=== PATIENT | female | born 1960 | race African-American/Black ===

== ENCOUNTER 2017-07-18 22:38 | Emergency (ER) | payer MEDICARE, MEDICAID | END 2017-07-19 00:07 | disposition home or self-care (01) | LOC: D.ER 22:38 | DX: T40.7X5A Adverse effect of cannabis (derivatives), initial encounter (principal); Y92.019 Unspecified place in single-family (private) house as the place of occurrence of the external cause ==

== ENCOUNTER 2017-08-05 23:34 | Emergency (ER) | payer MEDICARE, MEDICAID ==
[2017-08-06 00:50] LABS: BASOPHILS 0.4 % (0-2); EOSINOPHILS 5.7 % (0-7); HEMOGLOBIN 14.3 g/dL (12-16); IMMATURE GRANULOCYTES 0.3 % (0-5); MCH 27.4 pg (26.0-34.0); MCHC 32.5 g/dL (31.0-37.0); MCV 84.3 fL (80.0-100.0); NEUTROPHILS 55.6 % (40-80); PLATELET COUNT 241 10x3/uL (130-400); RBC 5.22 10x6/uL (4.00-5.40); RDW 14.1 % (11.5-14.5); WBC 6.9 10x3/uL (4.8-10.8)
[2017-08-06 00:54] LABS: ALBUMIN 3.4 g/dL (3.4-5.0); ALKALINE PHOSPHATASE 101 U/L (46-116); ALT (SGPT) 21 U/L (10-68); CALC OSMOLALITY 277 mosm/kg (275-300); CALCIUM 9.4 mg/dL (8.5-10.1); CARBON DIOXIDE 29.9 mmol/L (21.0-32.0); CHLORIDE - SERUM 103 mmol/L (98-107); CREATININE - SERUM 1.2 mg/dL (0.6-1.3); GLUCOSE 108 mg/dL (74-106); POTASSIUM - SERUM 3.3 mmol/L (3.5-5.1); PROTEIN - SERUM 7.8 g/dL (6.4-8.2); SODIUM 138 mmol/L (136-145); UREA NITROGEN 15 mg/dL (7-18); eGFR NON AFRICAN AMERICAN 49 mL/min (90-120)
[2017-08-06 01:02] LABS: THYROID STIMULATING HORMONE 5.35 uIU/mL (0.36-3.74); TROPONIN-I < 0.017 ng/mL (0.000-0.060)
== END 2017-08-06 02:08 | disposition home or self-care (01) ==
LOC: D.ER 23:34
PROVIDERS: Family Medicine
DX: I10 Essential (primary) hypertension (principal); K21.9 Gastro-esophageal reflux disease without esophagitis

== ENCOUNTER 2017-08-27 16:48 | Emergency (ER) | payer MEDICARE, MEDICAID ==
[2017-08-27 18:29] LABS: BASOPHILS 0.5 % (0-2); EOSINOPHILS 3.9 % (0-7); HEMATOCRIT 43.6 % (36.0-48.0); HEMOGLOBIN 14.3 g/dL (12-16); IMMATURE GRANULOCYTES 0.3 % (0-5); LYMPHOCYTES 28.7 % (15-50); MCH 27.4 pg (26.0-34.0); MCHC 32.8 g/dL (31.0-37.0); MCV 83.7 fL (80.0-100.0); MEAN PLATELET VOLUME 12.6 fL (7.4-10.4); MONOCYTES 8.6 % (2-11); PLATELET COUNT 225 10x3/uL (130-400); RBC 5.21 10x6/uL (4.00-5.40); RDW 13.8 % (11.5-14.5); WBC 7.9 10x3/uL (4.8-10.8)
[2017-08-27 18:35] LABS: APPEARANCE HAZY (CLEAR); BILIRUBIN NEGATIVE (NEGATIVE); GLUCOSE NEGATIVE (NEGATIVE); KETONE NEGATIVE (NEGATIVE); NITRITE NEGATIVE (NEGATIVE); PROTEIN 3+ mg/dL (NEGATIVE); SPECIFIC GRAVITY 1.015 (1.005-1.020); UROBILINOGEN NORMAL (NORMAL)
[2017-08-27 18:39] LABS: BACTERIA FEW /hpf (NONE SEEN); EPITHELIAL CELLS RARE /hpf (0-5); RED CELLS - URINE >50 /hpf (0-5)
[2017-08-27 18:47] LABS: ALBUMIN 3.2 g/dL (3.4-5.0); ANION GAP 14.2 mmol/L (8-16); BILIRUBIN - TOTAL 0.39 mg/dL (0.2-1.3); CALCIUM 9.4 mg/dL (8.5-10.1); CREATININE - SERUM 1.3 mg/dL (0.6-1.3); POTASSIUM - SERUM 3.2 mmol/L (3.5-5.1); PROTEIN - SERUM 7.6 g/dL (6.4-8.2)
== END 2017-08-27 20:07 | disposition home or self-care (01) ==
LOC: D.ER 16:48
PROVIDERS: Nurse Practitioner Acute Care
DX: R42 Dizziness and giddiness (principal); I10 Essential (primary) hypertension

== ENCOUNTER 2017-09-13 13:52 | Emergency (ER) | payer MEDICARE, MEDICAID ==
[2017-09-13 16:23] LABS: APPEARANCE CLEAR (CLEAR); BILIRUBIN NEGATIVE (NEGATIVE); COLOR YELLOW (YELLOW); GLUCOSE NEGATIVE (NEGATIVE); KETONE NEGATIVE (NEGATIVE); NITRITE NEGATIVE (NEGATIVE); PROTEIN NEGATIVE (NEGATIVE); UROBILINOGEN NORMAL (NORMAL)
[2017-09-13 16:24] LABS: RED CELLS - URINE 25-50 /hpf (0-5); WHITE CELLS - URINE 0-5 /hpf (0-5)
== END 2017-09-13 16:51 | disposition home or self-care (01) ==
LOC: D.ER 13:52
PROVIDERS: Nurse Practitioner Family
DX: J06.9 Acute upper respiratory infection, unspecified (principal); R42 Dizziness and giddiness; K21.9 Gastro-esophageal reflux disease without esophagitis

== ENCOUNTER 2017-09-18 10:25 | Emergency (ER) | payer MEDICARE, MEDICAID ==
[2017-09-18 11:07] LABS: BASOPHILS 0.1 % (0-2); EOSINOPHILS 0.2 % (0-7); HEMATOCRIT 46.9 % (36.0-48.0); HEMOGLOBIN 15.7 g/dL (12-16); IMMATURE GRANULOCYTES 0.4 % (0-5); LYMPHOCYTES 9.5 % (15-50); MCH 28.1 pg (26.0-34.0); MCHC 33.5 g/dL (31.0-37.0); MCV 83.9 fL (80.0-100.0); MEAN PLATELET VOLUME 11.5 fL (7.4-10.4); MONOCYTES 5.2 % (2-11); NEUTROPHILS 84.6 % (40-80); RBC 5.59 10x6/uL (4.00-5.40); RDW 13.9 % (11.5-14.5); WBC 13.4 10x3/uL (4.8-10.8)
[2017-09-18 11:10] LABS: PLATELET COUNT 334 10x3/uL (130-400)
[2017-09-18 11:24] LABS: ALBUMIN 3.2 g/dL (3.4-5.0); ANION GAP 12.3 mmol/L (8-16); BILIRUBIN - TOTAL 0.58 mg/dL (0.2-1.3); CALCIUM 9.6 mg/dL (8.5-10.1); CREATININE - SERUM 1.4 mg/dL (0.6-1.3); POTASSIUM - SERUM 4.3 mmol/L (3.5-5.1); PROTEIN - SERUM 8.1 g/dL (6.4-8.2)
[2017-09-18 11:57] LABS: CREATINE KINASE 32 UL (21-215); TROPONIN-I < 0.017 ng/mL (0.000-0.060)
[2017-09-18 12:06] LABS: APPEARANCE CLEAR (CLEAR); BACTERIA MODERATE /hpf (NONE SEEN); BILIRUBIN NEGATIVE (NEGATIVE); COLOR YELLOW (YELLOW); EPITHELIAL CELLS 0-5 /hpf (0-5); GLUCOSE NEGATIVE (NEGATIVE); KETONE NEGATIVE (NEGATIVE); NITRITE NEGATIVE (NEGATIVE); PROTEIN 1+ mg/dL (NEGATIVE); RED CELLS - URINE 25-50 /hpf (0-5); UROBILINOGEN NORMAL (NORMAL)
[2017-09-18 12:08] LABS: UDS - AMPHET NEGATIVE QUAL (NEGATIVE); UDS - BARB NEGATIVE QUAL (NEGATIVE); UDS - BENZO NEGATIVE QUAL (NEGATIVE); UDS - COCAINE NEGATIVE QUAL (NEGATIVE); UDS - OPIATE NEGATIVE QUAL (NEGATIVE); UDS - PCP NEGATIVE QUAL (NEGATIVE); UDS - THC NEGATIVE QUAL (NEGATIVE)
== END 2017-09-18 14:19 | disposition home or self-care (01) ==
LOC: D.ER 10:25
PROVIDERS: Emergency Medicine
DX: R53.1 Weakness (principal); R25.1 Tremor, unspecified; R42 Dizziness and giddiness; H93.19 Tinnitus, unspecified ear; R51 Headache; I12.9 Hypertensive chronic kidney disease with stage 1 through stage 4 chronic kidney disease, or unspecified chronic kidney disease; N18.9 Chronic kidney disease, unspecified; N39.0 Urinary tract infection, site not specified; K21.9 Gastro-esophageal reflux disease without esophagitis

== ENCOUNTER 2017-09-19 20:59 | Emergency (ER) | payer MEDICARE, MEDICAID | END 2017-09-19 22:41 | disposition home or self-care (01) | LOC: D.ER 20:59 | DX: F41.9 Anxiety disorder, unspecified (principal); K21.9 Gastro-esophageal reflux disease without esophagitis; I12.9 Hypertensive chronic kidney disease with stage 1 through stage 4 chronic kidney disease, or unspecified chronic kidney disease; N18.9 Chronic kidney disease, unspecified ==

== ENCOUNTER 2017-10-02 03:38 | Emergency (ER) | payer MEDICARE, MEDICAID ==
[2017-10-02 04:34] LABS: APPEARANCE HAZY (CLEAR); BILIRUBIN NEGATIVE (NEGATIVE); COLOR YELLOW (YELLOW); GLUCOSE NEGATIVE (NEGATIVE); KETONE NEGATIVE (NEGATIVE); NITRITE NEGATIVE (NEGATIVE); PROTEIN 1+ mg/dL (NEGATIVE); SPECIFIC GRAVITY 1.015 (1.005-1.020); UROBILINOGEN NORMAL (NORMAL)
[2017-10-02 04:35] LABS: BACTERIA FEW /hpf (NONE SEEN); EPITHELIAL CELLS 0-5 /hpf (0-5)
== END 2017-10-02 05:18 | disposition home or self-care (01) ==
LOC: D.ER 03:38
PROVIDERS: Emergency Medicine
DX: A09 Infectious gastroenteritis and colitis, unspecified (principal); N39.0 Urinary tract infection, site not specified; K21.9 Gastro-esophageal reflux disease without esophagitis; I12.9 Hypertensive chronic kidney disease with stage 1 through stage 4 chronic kidney disease, or unspecified chronic kidney disease; N18.9 Chronic kidney disease, unspecified

== ENCOUNTER 2017-10-02 10:13 | Emergency (ER) | payer MEDICARE, MEDICAID ==
[2017-10-02 11:27] LABS: BASOPHILS 0.3 % (0-2); HEMATOCRIT 43.7 % (36.0-48.0); HEMOGLOBIN 13.9 g/dL (12-16); IMMATURE GRANULOCYTES 0.3 % (0-5); LYMPHOCYTES 23.9 % (15-50); MCH 27.5 pg (26.0-34.0); MCHC 31.8 g/dL (31.0-37.0); MCV 86.5 fL (80.0-100.0); MONOCYTES 6.4 % (2-11); NEUTROPHILS 66.1 % (40-80); RBC 5.05 10x6/uL (4.00-5.40); RDW 15.1 % (11.5-14.5); WBC 7.7 10x3/uL (4.8-10.8)
[2017-10-02 11:29] LABS: ALBUMIN 3.2 g/dL (3.4-5.0); ALKALINE PHOSPHATASE 98 U/L (46-116); ALT (SGPT) 32 U/L (10-68); CALC OSMOLALITY 277 mosm/kg (275-300); CALCIUM 9.2 mg/dL (8.5-10.1); CARBON DIOXIDE 27.7 mmol/L (21.0-32.0); CHLORIDE - SERUM 104 mmol/L (98-107); GLUCOSE 91 mg/dL (74-106); PLATELET COUNT 232 10x3/uL (130-400); PROTEIN - SERUM 7.5 g/dL (6.4-8.2); SODIUM 140 mmol/L (136-145); UREA NITROGEN 9 mg/dL (7-18); eGFR NON AFRICAN AMERICAN 61 mL/min (90-120)
[2017-10-02 11:41] LABS: CREATINE KINASE 56 UL (21-215); MAGNESIUM - SERUM 2.3 mg/dL (1.8-2.4)
[2017-10-02 11:49] LABS: TROPONIN-I < 0.017 ng/mL (0.000-0.060)
== END 2017-10-02 15:00 | disposition home or self-care (01) ==
LOC: D.ER 10:13
PROVIDERS: Family Medicine
DX: F41.9 Anxiety disorder, unspecified (principal); I10 Essential (primary) hypertension; K21.9 Gastro-esophageal reflux disease without esophagitis

== ENCOUNTER 2017-12-08 11:41 | Emergency (ER) | payer MEDICARE, MEDICAID ==
[2017-12-08 12:48] LABS: BASOPHILS 0.3 % (0-2); EOSINOPHILS 3.7 % (0-7); HEMATOCRIT 39.6 % (36.0-48.0); HEMOGLOBIN 12.6 g/dL (12-16); IMMATURE GRANULOCYTES 0.3 % (0-5); LYMPHOCYTES 22.3 % (15-50); MCH 27.5 pg (26.0-34.0); MCHC 31.8 g/dL (31.0-37.0); MCV 86.3 fL (80.0-100.0); MEAN PLATELET VOLUME 12.1 fL (7.4-10.4); MONOCYTES 9.1 % (2-11); NEUTROPHILS 64.3 % (40-80); PLATELET COUNT 198 10x3/uL (130-400); RBC 4.59 10x6/uL (4.00-5.40); RDW 14.3 % (11.5-14.5)
[2017-12-08 13:12] LABS: ANION GAP 13.3 mmol/L (8-16); BILIRUBIN - TOTAL 0.41 mg/dL (0.2-1.3); CALCIUM 8.7 mg/dL (8.5-10.1); CARBON DIOXIDE 26.3 mmol/L (21.0-32.0); POTASSIUM - SERUM 4.6 mmol/L (3.5-5.1)
== END 2017-12-08 15:16 | disposition home or self-care (01) ==
LOC: D.ER 11:41
PROVIDERS: Physician Assistant
DX: R42 Dizziness and giddiness (principal); J06.9 Acute upper respiratory infection, unspecified; G44.209 Tension-type headache, unspecified, not intractable; K21.9 Gastro-esophageal reflux disease without esophagitis; I12.9 Hypertensive chronic kidney disease with stage 1 through stage 4 chronic kidney disease, or unspecified chronic kidney disease; N18.9 Chronic kidney disease, unspecified

== ENCOUNTER → 2018-04-23 08:00 | Outpatient (CLI) | payer MEDICARE, MEDICAID | END | disposition home or self-care (01) | LOC: D.MAMMO 08:00 | DX: Z12.31 Encounter for screening mammogram for malignant neoplasm of breast (principal) ==

== ENCOUNTER → 2018-08-20 13:25 | Outpatient (CLI) | payer MEDICARE, MEDICAID | END | disposition home or self-care (01) | LOC: D.RT 13:25 | DX: R06.02 Shortness of breath (principal) ==

== ENCOUNTER 2018-12-31 21:12 | Emergency (ER) | payer MEDICARE, MEDICAID ==
[~2018-12-31] VITALS: Ht 149.9 cm; Wt 134.1 kg
[2018-12-31 21:15] VITALS: Ht 149.9 cm; Wt 134.1 kg
[2018-12-31] MEDS ORDERED: CHOLESTEROL PILL (21:17)
[2018-12-31] MEDS ORDERED: METOPROLOL TART50 MG PO (21:17)
[2018-12-31] MEDS ORDERED: HYDROCHLOROTHIA25 MG PO (21:17)
[2018-12-31] MEDS ORDERED: POTASSIUM CHLO20 MEQ PO (21:18)
[2018-12-31] MEDS ORDERED: FUROSEMIDE40 MG PO (21:18)
[2018-12-31 21:54] LABS: BASOPHILS 0.2 % (0-2); EOSINOPHILS 4.5 % (0-7); HEMOGLOBIN 12.8 g/dL (12-16); IMMATURE GRANULOCYTES 0.5 % (0-5); MCH 27.1 pg (26.0-34.0); MCV 84.7 fL (80.0-100.0); MEAN PLATELET VOLUME 11.3 fL (7.4-10.4); MONOCYTES 6.2 % (2-11); NEUTROPHILS 66.6 % (40-80); RBC 4.72 10x6/uL (4.00-5.40); RDW 14.1 % (11.5-14.5)
[2018-12-31 21:57] LABS: PLATELET COUNT 266 10x3/uL (130-400)
[2018-12-31 22:06] LABS: ALBUMIN 2.9 g/dL (3.4-5.0); ANION GAP 11.5 mmol/L (8-16); BILIRUBIN - TOTAL 0.25 mg/dL (0.2-1.3); CALCIUM 8.4 mg/dL (8.5-10.1); CARBON DIOXIDE 25.2 mmol/L (21.0-32.0); CREATININE - SERUM 1.1 mg/dL (0.6-1.3); POTASSIUM - SERUM 3.7 mmol/L (3.5-5.1); PROTEIN - SERUM 7.2 g/dL (6.4-8.2)
[2019-01-01 04:04] VITALS: BP 165/87
== END 2019-01-01 00:16 | disposition home or self-care (01) ==
LOC: D.ER 21:12
PROVIDERS: Family Medicine
DX: E86.0 Dehydration (principal); R19.7 Diarrhea, unspecified; I10 Essential (primary) hypertension

== ENCOUNTER 2019-04-25 06:39 | Emergency (ER) | payer MEDICARE, MEDICAID ==
[~2019-04-25] VITALS: Ht 149.9 cm; Wt 143.2 kg
[~2019-04-25 06:39] MED LIST: CHOLESTEROL PILL; FUROSEMIDE40 MG PO; HYDROCHLOROTHIA25 MG PO; METOPROLOL TART50 MG PO; POTASSIUM CHLO20 MEQ PO
[2019-04-25 06:42] VITALS: Ht 149.9 cm; Wt 143.2 kg
[2019-04-25] MEDS ORDERED: K-DUR20 MEQ PO (06:44)
[2019-04-25] MEDS ORDERED: ATIVAN0.5 MG PO (06:44)
[2019-04-25] MEDS ORDERED: HYDROCODON-ACE1 EA10 PO (06:45)
[2019-04-25 07:50] LABS: APPEARANCE SL CLDY (CLEAR); BACTERIA MODERATE /hpf (NONE SEEN); BILIRUBIN NEGATIVE (NEGATIVE); COLOR YELLOW (YELLOW); EPITHELIAL CELLS 0-5 /hpf (0-5); GLUCOSE NEGATIVE (NEGATIVE); KETONE NEGATIVE (NEGATIVE); NITRITE NEGATIVE (NEGATIVE); PROTEIN 1+ mg/dL (NEGATIVE); RED CELLS - URINE 0-5 /hpf (0-5); SPECIFIC GRAVITY 1.015 (1.005-1.020); WHITE CELLS - URINE 0-5 /hpf (0-5)
[2019-04-25 07:52] LABS: MUCUS <1+ /lpf (NONE SEEN)
[2019-04-25] MEDS ORDERED: SULFAMETHOXAZOL1 TA3 PO (08:00)
[2019-04-25 08:13] VITALS: BP 142/79
== END 2019-04-25 08:14 | disposition home or self-care (01) ==
LOC: D.ER 06:39
PROVIDERS: Family Medicine
DX: R30.0 Dysuria (principal)